=== PATIENT | male | born 1980 | race Hispanic/Latino ===

== ENCOUNTER 2018-04-16 15:07 | Emergency (ER) | payer BC, OTHER ==
[2018-04-16] MEDS ORDERED: KETOROLAC 30 MG/ML INJ ONE (15:36)
--- NOTE | 2018-04-16 15:49 | RAD REPORT ---
EXAM DESCRIPTION: CT - Stone Protocol - 04/16/2018 3:38 pm CLINICAL HISTORY: Abdominal pain. Left flank pain COMPARISON: None. TECHNIQUE: Computed axial tomography of the abdomen pelvis was obtained without oral or IV contrast. Lack of IV and oral contrast limits evaluation of solid organs, bowel, and vessels. Coronal reformat chun images were obtained and reviewed. All CT scans are performed using dose optimization technique as appropriate and may include automated exposure control or mA/KV adjustment according to patient size. FINDINGS: A renal calculus is not seen. Minimal left hydronephrosis is present. A 2 millimeter calcu malia is present the distal left ureter. The liver, spleen, pancreas and adrenals appear grossly normal There is no evidence of diverticulitis. The appendix appears normal IMPRESSION: 2 millimeter calculus distal left ureter resulting in minimal left hydronephrosis
[2018-04-16] MEDS ORDERED: TAMSULOSIN 0.4 MG SR CAP ONE (15:59)
--- NOTE | 2018-04-16 16:04 | ER ---
Nurse's Notes [facility] Name: Derrek Stephens Age: 38 yrs Sex: Male : 1980 Arrival Date: 04/16/2018 Time: 15:11 Bed 17 Private MD: Diagnosis: Distal left ureter calculus Presentation: 04/16 15:15 Presenting complaint: Patient states: Left side flank pain described as stabbing pain a sg 8/10, non radiating, no urinary complaints at this time, reports constant pain that started this morning. Transition of care: patient was not received from another setting of care. Onset of symptoms was April 16, 2018. Risk Assessment: Do you want to hurt yourself or someone else? Patient reports no desire to harm self or others. Initial Sepsis Screen: Does the patient meet any 2 criteria? No. Patient's initial sepsis screen is negative. Does the patient have a suspected source of infection? No. Patient's initial sepsis screen is negative. Care prior to arrival: None. 15:15 Method Of Arrival: Ambulatory sg 15:15 Acuity: TREE 3 sg Historical: - Allergies: 15:12 No Known Allergies; sg - Home Meds: 15:12 None [Active]; sg - PMHx: 15:12 None; sg - PSHx: 15:12 Tonsillectomy; sg - Immunization history:: Adult Immunizations up to date. - Social history:: Smoking status: Patient/guardian denies using tobacco, the patient reports quitting approximately 10 years ago. - Ebola Screening: : Patient negative for fever greater than or equal to 101.5 degrees Fahrenheit, and additional compatible Ebola Virus Disease symptoms Patient denies exposure to infectious person Patient denies travel to an Ebola-affected area in the 21 days before illness onset No symptoms or risks identified at this time. Screenin:35 Abuse screen: Denies threats or abuse. Nutritional screening: No deficits noted. em Tuberculosis screening: No symptoms or risk factors identified. Fall Risk None identified. Assessment: 15:29 General: Appears in no apparent distress. uncomfortable, well developed, well em nourished, Behavior is calm, cooperative. Pain: Complains of pain in left low back Pain currently is 8 out of 10 on a pain scale. Neuro: Level of Consciousness is awake, alert, obeys commands, Oriented to person, place, time, situation. Cardiovascular: Capillary refill < 3 seconds Patient's skin is warm and dry. Respiratory: Airway is patent Respiratory effort is even, unlabored, Respiratory pattern is regular, symmetrical. GI: Abdomen is round Reports nausea, Patient currently denies vomiting. : Urine is clear. Derm: Skin is intact, Skin is pink, warm \T\ dry. Musculoskeletal: Range of motion: intact in all extremities. 15:35 General: The previous assessment is accurate, call light remains within reach. . ss 16:33 Reassessment: Patient appears in no apparent distress at this time. Patient and/or em family updated on plan of care and expected duration. Pain level reassessed. Patient is alert, oriented x 3, equal unlabored respirations, skin warm/dry/pink. Patient states feeling better. Vital Signs: 15:13 Pulse 89; Resp 17; Temp 98.5; Pulse Ox 98% ; Weight 129.27 kg; Height 5 ft. 11 in. sg (180.34 cm); Pain 8/10; 16:15 BP 126 / 81; Pulse 78; Resp 16; Pulse Ox 99% on R/A; Pain 3/10; em 15:13 Body Mass Index 39.75 (129.27 kg, 180.34 cm) sg ED Course: 15:11 Patient arrived in ED. sg 15:12 Arm band placed on. sg 15:14 Daniella Johnson FNP-C is PHCP. snw 15:14 Abimael Sandoval MD is Attending Physician. snw 15:16 Triage completed. sg 15:19 Pan Urban LVN is Primary Nurse. em 15:[address] nj 15:37 CT completed. Patient tolerated procedure well. Patient moved back from CT. nj 15:39 CT Stone Protocol In Process Unspecified. EDMS 16:29 Patient has correct armband on for positive identification. Placed in gown. Bed in low em position. Call light in reach. 16:29 No provider procedures requiring assistance completed. Patient did not have IV access em during this emergency room visit. Administered Medications: 15:57 Drug: TORadol 60 mg Route: IM; Site: right gluteus; em 16:39 Follow up: Response: No adverse reaction em 16:08 Drug: Flomax 0.4 mg Route: PO; em 16:39 Follow up: Response: No adverse reaction em Outcome: 16:03 Discharge ordered by MD. villarreal 16:33 Discharged to home ambulatory. em 16:33 Condition: good 16:33 Discharge instructions given to patient, Instructed on discharge instructions, follow up and referral plans. medication usage, Demonstrated understanding of instructions, follow-up care, medications, Prescriptions given X 2. 16:39 Patient left the ED. em Signatures: Dispatcher [employer] Colby Beard RN RN sg Daniella Johnson, SALES ENGAGEMENT EXECUTIVE-C SALES ENGAGEMENT EXECUTIVE-Csnw Pan Urban, BUSINESS BANKING OFFICER BUSINESS BANKING OFFICER em Beverly Velazquez, Carmine Jolly RN
--- NOTE | 2018-04-16 16:04 | EDPHYS ---
Physician Documentation [facility] Name: Derrek Stephens Age: 38 yrs Sex: Male : 1980 Arrival Date: 04/16/2018 Time: 15:11 Bed 17 Private MD: ED Physician Abimael Sandoval HPI: 04/16 16:00 This 38 yrs old Male presents to ER via Ambulatory with complaints of Flank snw Pain. 16:00 The patient complains of pain in the left low back. The pain does not radiate. Onset: snw The symptoms/episode began/occurred suddenly, today. Modifying factors: The symptoms are alleviated by nothing. Severity of pain: At its worst the pain was moderate severe. The patient has not experienced similar symptoms in the past. The patient has not recently seen a physician. Dad with kidney stone history. Historical: - Allergies: 15:12 No Known Allergies; sg - Home Meds: 15:12 None [Active]; sg - PMHx: 15:12 None; sg - PSHx: 15:12 Tonsillectomy; sg - Immunization history:: Adult Immunizations up to date. - Social history:: Smoking status: Patient/guardian denies using tobacco, the patient reports quitting approximately 10 years ago. - Ebola Screening: : Patient negative for fever greater than or equal to 101.5 degrees Fahrenheit, and additional compatible Ebola Virus Disease symptoms Patient denies exposure to infectious person Patient denies travel to an Ebola-affected area in the 21 days before illness onset No symptoms or risks identified at this time. ROS: 16:00 Constitutional: Negative for fever, chills, and weight loss, Eyes: Negative for injury, snw pain, redness, and discharge, ENT: Negative for injury, pain, and discharge, Neck: Negative for injury, pain, and swelling, Cardiovascular: Negative for chest pain, palpitations, and edema, Respiratory: Negative for shortness of breath, cough, wheezing, and pleuritic chest pain, Abdomen/GI: Negative for abdominal pain, nausea, vomiting, diarrhea, and constipation, : Negative for injury, bleeding, discharge, and swelling, MS/Extremity: Negative for injury and deformity, Skin: Negative for injury, rash, and discoloration, Neuro: Negative for headache, weakness, numbness, tingling, and seizure. 16:00 Back: Positive for pain at rest, pain with movement, of the left low back. Exam: 15:59 Constitutional: This is a well developed, well nourished patient who is awake, alert, snw and in no acute distress. Head/Face: Normocephalic, atraumatic. Eyes: Pupils equal round and reactive to light, extra-ocular motions intact. Lids and lashes normal. Conjunctiva and sclera are non-icteric and not injected. Cornea within normal limits. Periorbital areas with no swelling, redness, or edema. ENT: Nares patent. No nasal discharge, no septal abnormalities noted. Tympanic membranes are normal and external auditory canals are clear. Oropharynx with no redness, swelling, or masses, exudates, or evidence of obstruction, uvula midline. Mucous membranes moist. Neck: Trachea midline, no thyromegaly or masses palpated, and no cervical lymphadenopathy. Supple, full range of motion without nuchal rigidity, or vertebral point tenderness. No Meningismus. Chest/axilla: Normal chest wall appearance and motion. Nontender with no deformity. No lesions are appreciated. Cardiovascular: Regular rate and rhythm with a normal S1 and S2. No gallops, murmurs, or rubs. Normal PMI, no JVD. No pulse deficits. Respiratory: Lungs have equal breath sounds bilaterally, clear to auscultation and percussion. No rales, rhonchi or wheezes noted. No increased work of breathing, no retractions or nasal flaring. Abdomen/GI: Soft, non-tender, with normal bowel sounds. No distension or tympany. No guarding or rebound. No evidence of tenderness throughout. Back: No spinal tenderness. No costovertebral tenderness. Full range of motion. left low flank tenderness Skin: Warm, dry with normal turgor. Normal color with no rashes, no lesions, and no evidence of cellulitis. MS/ Extremity: Pulses equal, no cyanosis. Neurovascular intact. Full, normal range of motion. Neuro: Awake and alert, GCS 15, oriented to person, place, time, and situation. Cranial nerves II-XII grossly intact. Motor strength 5/5 in all extremities. Sensory grossly intact. Cerebellar exam normal. Normal gait. Vital Signs: 15:13 Pulse 89; Resp 17; Temp 98.5; Pulse Ox 98% ; Weight 129.27 kg; Height 5 ft. 11 in. sg (180.34 cm); Pain 8/10; 16:15 BP 126 / 81; Pulse 78; Resp 16; Pulse Ox 99% on R/A; Pain 3/10; em 15:13 Body Mass Index 39.75 (129.27 kg, 180.34 cm) MDM: 15:19 Patient medically screened. snw 16:05 Data reviewed: vital signs, nurses notes. Data interpreted: Pulse oximetry: on room air snw is 98 %. Interpretation: normal. Counseling: I had a detailed discussion with the patient and/or guardian regarding: the historical points, exam findings, and any diagnostic results supporting the discharge/admit diagnosis, radiology results, the need for outpatient follow up, to return to the emergency department if symptoms worsen or persist or if there are any questions or concerns that arise at home. Special discussion: Based on the history and exam findings, there is no indication for further emergent testing or inpatient evaluation. I discussed with the patient/guardian the need to see the primary care provider for further evaluation of the symptoms. I discussed with the patient/guardian the need to see the urologist for further evaluation of the symptoms. 04/16 16:22 Order name: Urine Dipstick--Ancillary (enter results); Complete Time: 10:28 ag 04/16 15:25 Order name: CT Stone Protocol; Complete Time: 15:50 snw 04/16 15:21 Order name: Urine Dipstick-Ancillary (obtain specimen); Complete Time: 16:08 snw Administered Medications: 15:57 Drug: TORadol 60 mg Route: IM; Site: right gluteus; em 16:39 Follow up: Response: No adverse reaction em 16:08 Drug: Flomax 0.4 mg Route: PO; em 16:39 Follow up: Response: No adverse reaction em Disposition: 18:20 Co-signature as Attending Physician, Abimael Sandoval MD. rn Disposition: 04/16/18 16:03 Discharged to Home. Impression: Distal left ureter calculus. - Condition is Stable. - Discharge Instructions: Kidney Stones, Dietary Guidelines to Help Prevent Kidney Stones, Rehydration, Adult. - Prescriptions for Diclofenac Sodium 75 mg Oral Tablet Sustained Release - take 1 tablet by ORAL route 2 times per day; 30 tablet. promethazine 25 mg Oral Tablet - take 1 tablet by ORAL route every 6 hours As needed; 20 tablet. - Work release form, Medication Reconciliation Form, Thank You Letter, Antibiotic Education, Prescription Opioid Use form. - Follow up: Private Physician; When: 2 - 3 days; Reason: Recheck today's complaints, Continuance of care, Re-evaluation by your physician. Follow up: Emergency Department; When: As needed; Reason: Worsening of condition. Signatures: Dispatcher [employer] EDColby Flores, RN RN sg Daniella Johnson, [place] NENA-Twyla PAYMENT POSTER-Lizw Pan Urban, CASTING MACHINE OPERATOR HELPER CASTING MACHINE OPERATOR HELPER em Abimael Sandoval MD MD pr intern: (The following items were deleted from the chart) 16:39 16:03 04/16/2018 16:03 Discharged to Home. Impression: Distal left ureter calculus. em Condition is Stable. Forms are Medication Reconciliation Form, Thank You Letter, Antibiotic Education, Prescription Opioid Use. Follow up: Private Physician; When: 2 - 3 days; Reason: Recheck today's complaints, Continuance of care, Re-evaluation by your physician. Follow up: Emergency Department; When: As needed; Reason: Worsening of condition. snw
[2018-04-16 16:26] LABS: Urine Blood 2+ (NEG); Urine Glucose NEGATIVE (NEG); Urine Protein NEGATIVE (NEG); Urine Specific Gravity 1.025 (1.005-1.030)
== END 2018-04-16 16:39 | disposition home or self-care (01) ==
LOC: ER 15:07
DX: N20.1 Calculus of ureter (principal)
CPT/HCPCS: 74176; 76377; 81003; 96372; 99284

== ENCOUNTER 2020-07-30 10:52 | Emergency (ER) | payer BC ==
[2020-07-30] MEDS ORDERED: MECLIZINE HCL 12.5 MG TAB ONE (11:20)
[2020-07-30 11:41] LABS: Absolute Lymphocytes (CBC) 0.9 K/uL (0.7-4.9); Basophils % 0.3 % (0-1.3); Hematocrit 44.2 % (39.6-49.0); Lymphocytes % 7.6 % (15.3-44.8); MPV 8.1 fL (7.6-11.3)
[2020-07-30 11:44] LABS: Protime INR 0.98
--- NOTE | 2020-07-30 11:45 | RAD REPORT ---
EXAM DESCRIPTION: Maryse Single View07/30/2020 11:34 am CLINICAL HISTORY: Shortness of breath COMPARISON: none FINDINGS: The lungs appear clear of acute infiltrate. The heart is normal size IMPRESSION: No acute abnormalities displayed
--- OUTSIDE RECORDS SUMMARY | 2020-07-30 11:47 | XMS REPORT | Continuity of Care Document ---
:1980 Author Organization [facility] t Address [address] Renee [address] [place] [id number] Care Team Providers Name Role Phone Unavailable Unavailable Unavailable Problems This patient has no known problems. Allergies, Adverse Reactions, Alerts This patient has no known allergies or adverse reactions. Medications This patient has no known medications. Procedures This patient has no known procedures. Results This patient has no known results.
[2020-07-30 12:01] LABS: ALT/SGPT 61 U/L (12-78); AST/SGOT 28 U/L (15-37); Albumin 3.7 g/dL (3.4-5.0); Alkaline Phosphatase 67 U/L (45-117); BUN Blood Urea Nitrogen 17 mg/dL (7-18); Bicarbonate 25 mmol/L (21-32); Bilirubin Direct 0.1 mg/dL (0-0.2); Bilirubin Total 0.4 mg/dL (0.2-1.0); Glucose Level 180 mg/dL (74-106); Magnesium 2.1 mg/dL (1.8-2.4); NT PRO-BNP 8 pg/mL (<125); Potassium 3.8 mmol/L (3.5-5.1); Protein, Total 7.1 g/dL (6.4-8.2); Sodium Level 141 mmol/L (136-145); Troponin (Emerg Dept Use Only) < 0.02 ng/mL (0.0-0.045)
--- NOTE | 2020-07-30 12:57 | ER ---
Nurse's Notes [facility] Name: Derrek Stephens Age: 40 yrs Sex: Male : 1980 Arrival Date: 07/30/2020 Time: 10:54 Bed 8 Private MD: Diagnosis: Other peripheral vertigo Presentation: 07/30 10:55 Chief complaint: EMS states: pt was at work, went up on a structure and felt fine, then tw2 when he got to his desk and set down, he started feeling lightheaded, diaphoretic, dizzy and shirt was soaking wet. initially his BP was 129/100, BGL 142, EKG showed NS, 20 g to RIGHT ac, started 1LNS. Coronavirus screen: At this time, the client does not indicate any symptoms associated with coronavirus-19. Ebola Screen: Patient denies travel to an Ebola-affected area in the 21 days before illness onset. Initial Sepsis Screen: Does the patient meet any 2 criteria? No. Patient's initial sepsis screen is negative. Does the patient have a suspected source of infection? No. Patient's initial sepsis screen is negative. Risk Assessment: Do you want to hurt yourself or someone else? Patient reports no desire to harm self or others. Note provider KIRAN Villaseñor at bedside at this time. Onset of symptoms was July 30, 2020. 10:55 Method Of Arrival: EMS: [facility] EMS tw2 10:55 Acuity: TREE 3 tw2 Triage Assessment: 10:59 General: Appears in no apparent distress. obese, well groomed, Behavior is calm, tw2 cooperative, appropriate for age. Pain: Denies pain. Historical: - Allergies: 11:02 No Known Allergies; tw2 - Home Meds: 11:02 "unknown hypertension medicine" [Active]; tw2 - PMHx: 11:02 Hypertension; tw2 - PSHx: 11:02 Tonsillectomy; tw2 - Immunization history:: Adult Immunizations. - Social history:: Smoking status: . Screenin:23 Abuse screen: Denies threats or abuse. Nutritional screening: No deficits noted. tw2 Tuberculosis screening: No symptoms or risk factors identified. Fall Risk None identified. Assessment: 10:55 General: Appears in no apparent distress. obese, well groomed, Behavior is calm, tw2 cooperative, appropriate for age. Pain: Denies pain. Neuro: Level of Consciousness is awake, alert, obeys commands, Oriented to person, place, time, situation, Reports dizziness. Cardiovascular: Heart tones S1 S2 Patient's skin is warm and dry. Respiratory: Airway is patent Respiratory effort is even, unlabored, Respiratory pattern is regular, symmetrical, Breath sounds are clear bilaterally. GI: No signs and/or symptoms were reported involving the gastrointestinal system. Abdomen is round non-distended, obese, Bowel sounds present X 4 quads. : No signs and/or symptoms were reported regarding the genitourinary system. EENT: No signs and/or symptoms were reported regarding the EENT system. Derm: No signs and/or symptoms reported regarding the dermatologic system. Musculoskeletal: Range of motion: intact in all extremities. 11:45 Reassessment: Patient appears in no apparent distress at this time. No changes from tw2 previously documented assessment. Patient and/or family updated on plan of care and expected duration. Pain level reassessed. Patient is alert, oriented x 3, equal unlabored respirations, skin warm/dry/pink. 12:57 Reassessment: Patient appears in no apparent distress at this time. No changes from tw2 previously documented assessment. Patient and/or family updated on plan of care and expected duration. Pain level reassessed. Patient is alert, oriented x 3, equal unlabored respirations, skin warm/dry/pink. Vital Signs: 10:55 BP 142 / 91; Pulse 88; Resp 17; Temp 97.8(TE); Pulse Ox 99% on R/A; Weight 135.17 kg tw2 (R); Height 5 ft. 11 in. (180.34 cm); Pain 0/10; 11:45 BP 133 / 84; Pulse 81; Resp 16; Pulse Ox 100% on R/A; tw2 12:05 BP 127 / 77 RA Supine (auto/lg); Pulse 84; em1 12:07 BP 128 / 90 LA Sitting (auto/lg); Pulse 84; em1 12:09 BP 119 / 79 LA Standing (auto/lg); Pulse 83; em1 12:57 BP 125 / 77; Pulse 80; Resp 13; Pulse Ox 100% on R/A; tw2 10:55 Body Mass Index 41.56 (135.17 kg, 180.34 cm) tw2 ED Course: 10:54 Patient arrived in ED. tw2 10:54 Jarek Hugo PA is PHCP. tw2 10:54 Placed in gown. Bed in low position. Side rails up X2. electronic warfare linguist on. Pulse ox on. tw2 NIBP on. 10:54 Maintain EMS IV. Dressing intact. Good blood return noted. Site clean \\T\\ dry. Gauge \\T\\ tw 2 site: 18 g RIGHT AC. 10:59 Triage completed. tw2 10:59 Arm band placed on. tw2 11:05 Myrima Bolden, RN is Primary Nurse. tw2 11:27 EKG done, by oven technician. reviewed by Jarek BECK. at1 11:32 Stevenson Sharma MD is Attending Physician. jr8 11:34 XRAY Chest (1 view) In Process Unspecified. EDMS 13:18 No provider procedures requiring assistance completed. IV discontinued, intact, jl7 bleeding controlled, No redness/swelling at site. Pressure dressing applied. Administered Medications: 11:13 Drug: Meclizine 25 mg Route: PO; tw2 13:02 Follow up: Response: No adverse reaction; No change in condition tw2 Outcome: 12:56 Discharge ordered by . jr8 13:18 Discharged to home ambulatory. jl7 13:18 Condition: stable 13:18 Discharge instructions given to patient, Instructed on discharge instructions, follow up and referral plans. medication usage, Demonstrated understanding of instructions, follow-up care, medications, Prescriptions given X 1. 13:19 Patient left the ED. jl7 Signatures: Dispatcher [employer] EDMS Trace Kamara em1 Jarek Hugo PA PA jr8 Carmen Escudero, forge hand EKG Tat1 Myriam Bolden, RN RN tw2 Zaheer Jones, RN RN jl7
--- NOTE | 2020-07-30 12:57 | EDPHYS ---
Physician Documentation [facility] Name: Derrek Stephens Age: 40 yrs Sex: Male : 1980 Arrival Date: 07/30/2020 Time: 10:54 Bed 8 Private MD: ED Physician Stevenson hSarma HPI: 07/30 11:29 This 40 yrs old Male presents to ER via EMS with complaints of Dizziness. jr8 11:29 The patient presents with sense of spinning. Onset: The symptoms/episode began/occurred jr8 acutely, today. Context: occurred at work. Modifying factors: The symptoms are alleviated by nothing, the symptoms are aggravated by standing up, changing position. Associated signs and symptoms: Pertinent positives: diaphoresis. Severity of symptoms: At their worst the symptoms were moderate in the emergency department the symptoms have improved markedly. Patient's baseline: Neuro: alert and fully oriented, Motor: no deficits, Ambulation: walks without assistance, Speech: normal. The patient has not experienced similar symptoms in the past. The patient has not recently seen a physician. Patient stated that he had just finished getting off of a structure at work. Went to bathroom without problems and then sat down at desk. Stated that shortly after started to have sense of spinning along with coolness and diaphoresis. Denies n/v or any other preceding symptoms . Historical: - Allergies: 11:02 No Known Allergies; tw2 - Home Meds: 11:02 "unknown hypertension medicine" [Active]; tw2 - PMHx: 11:02 Hypertension; tw2 - PSHx: 11:02 Tonsillectomy; tw2 - Immunization history:: Adult Immunizations. - Social history:: Smoking status: . ROS: 11:29 Eyes: Negative for injury, pain, redness, and discharge, ENT: Negative for injury, jr8 pain, and discharge, Neck: Negative for injury, pain, and swelling, Cardiovascular: Negative for chest pain, palpitations, and edema, Respiratory: Negative for shortness of breath, cough, wheezing, and pleuritic chest pain, Abdomen/GI: Negative for abdominal pain, nausea, vomiting, diarrhea, and constipation, Back: Negative for injury and pain, MS/Extremity: Negative for injury and deformity, Skin: Negative for injury, rash, and discoloration. 11:29 Neuro: Positive for dizziness. Exam: 11:29 Eyes: Pupils equal round and reactive to light, extra-ocular motions intact. Lids and jr8 lashes normal. Conjunctiva and sclera are non-icteric and not injected. Cornea within normal limits. Periorbital areas with no swelling, redness, or edema. ENT: Nares patent. No nasal discharge, no septal abnormalities noted. Tympanic membranes are normal and external auditory canals are clear. Oropharynx with no redness, swelling, or masses, exudates, or evidence of obstruction, uvula midline. Mucous membranes moist. Neck: Trachea midline, no thyromegaly or masses palpated, and no cervical lymphadenopathy. Supple, full range of motion without nuchal rigidity, or vertebral point tenderness. No Meningismus. Cardiovascular: Regular rate and rhythm with a normal S1 and S2. No gallops, murmurs, or rubs. Normal PMI, no JVD. No pulse deficits. Respiratory: Lungs have equal breath sounds bilaterally, clear to auscultation and percussion. No rales, rhonchi or wheezes noted. No increased work of breathing, no retractions or nasal flaring. Abdomen/GI: Soft, non-tender, with normal bowel sounds. No distension or tympany. No guarding or rebound. No evidence of tenderness throughout. Back: No spinal tenderness. No costovertebral tenderness. Full range of motion. Skin: Warm, dry with normal turgor. Normal color with no rashes, no lesions, and no evidence of cellulitis. MS/ Extremity: Pulses equal, no cyanosis. Neurovascular intact. Full, normal range of motion. Neuro: Awake and alert, GCS 15, oriented to person, place, time, and situation. Cranial nerves II-XII grossly intact. Motor strength 5/5 in all extremities. Sensory grossly intact. Cerebellar exam normal. Vital Signs: 10:55 BP 142 / 91; Pulse 88; Resp 17; Temp 97.8(TE); Pulse Ox 99% on R/A; Weight 135.17 kg tw2 (R); Height 5 ft. 11 in. (180.34 cm); Pain 0/10; 11:45 BP 133 / 84; Pulse 81; Resp 16; Pulse Ox 100% on R/A; tw2 12:05 BP 127 / 77 RA Supine (auto/lg); Pulse 84; em1 12:07 BP 128 / 90 LA Sitting (auto/lg); Pulse 84; em1 12:09 BP 119 / 79 LA Standing (auto/lg); Pulse 83; em1 12:57 BP 125 / 77; Pulse 80; Resp 13; Pulse Ox 100% on R/A; tw2 10:55 Body Mass Index 41.56 (135.17 kg, 180.34 cm) tw2 MDM: 10:59 Patient medically screened. jr8 12:55 Differential diagnosis: cardiac arrhythmia, CVA, hypovolemia, idiopathic dizziness, jr8 near-syncope, syncope, TIA, vertigo. Data reviewed: vital signs, nurses notes, lab test result(s), EKG, radiologic studies, plain films. Data interpreted: Pulse oximetry: on room air is 100 %. Interpretation: normal. Counseling: I had a detailed discussion with the patient and/or guardian regarding: the historical points, exam findings, and any diagnostic results supporting the discharge/admit diagnosis, lab results, radiology results, the need for outpatient follow up, a family practitioner, to return to the emergency department if symptoms worsen or persist or if there are any questions or concerns that arise at home. Response to treatment: the patient's symptoms have resolved after treatment. 07/30 10:59 Order name: Basic Metabolic Panel; Complete Time: 12:02 07/30 10:59 Order name: CBC with Diff; Complete Time: 11:53 07/30 10:59 Order name: LFT's; Complete Time: 12:02 07/30 10:59 Order name: Magnesium; Complete Time: 12:02 07/30 10:59 Order name: NT PRO-BNP; Complete Time: 12:02 07/30 10:59 Order name: PT-INR; Complete Time: 11:53 07/30 10:59 Order name: Troponin (emerg Dept Use Only); Complete Time: 12:02 07/30 10:59 Order name: XRAY Chest (1 view); Complete Time: 11:53 07/30 11:00 Order name: EKG; Complete Time: 11:01 07/30 11:00 Order name: Cardiac monitoring; Complete Time: 11:07 07/30 11:00 Order name: EKG - Nurse/Tech; Complete Time: 11:13 07/30 11:00 Order name: IV Saline Lock; Complete Time: 07/30 11:00 Order name: Labs collected and sent; Complete Time: 07/30 11:00 Order name: O2 Per Protocol; Complete Time: 07/30 11:00 Order name: O2 Sat Monitoring; Complete Time: 07/30 12:02 Order name: Orthostatics; Complete Time: 12: Administered Medications: 11: Drug: Meclizine 25 mg Route: PO; tw2 13:02 Follow up: Response: No adverse reaction; No change in condition tw2 Disposition: 15:07 Co-signature as Attending Physician, Stevenson Sharma MD I agree with the assessment and jeffrey plan of care. Disposition: 07/30/20 12:56 Discharged to Home. Impression: Other peripheral vertigo. - Condition is Stable. - Discharge Instructions: Vertigo, Vertigo, [id number]. - Prescriptions for Meclizine 25 mg Oral Tablet - take 1 tablet by ORAL route every 8 hours As needed; 30 tablet. - Medication Reconciliation Form, Thank You Letter, Antibiotic Education, Prescription Opioid Use, Work release form form. - Follow up: Private Physician; When: 1 - 2 days; Reason: Recheck today's complaints, Continuance of care, Re-evaluation by your physician. - Problem is new. - Symptoms have improved. Signatures: Dispatcher [employer] Stevenson Quinones MD MD cha Roszak, Josh, PA PA jr8 Myriam Bolden RN RN tw2 Zaheer Jones RN RN jl7 Corrections: (The following items were deleted from the chart) 13:19 12:56 07/30/2020 12:56 Discharged to Home. Impression: Other peripheral vertigo. jl7 Condition is Stable. Forms are Work release form, Medication Reconciliation Form, Thank You Letter, Antibiotic Education, Prescription Opioid Use. Follow up: Private Physician; When: 1 - 2 days; Reason: Recheck today's complaints, Continuance of care, Re-evaluation by your physician. Problem is new. Symptoms have improved. jr8
[2020-07-30 13:42] VITALS: TEMP 97.8
[2020-07-30 13:48] VITALS: O2SAT 100
[2020-07-30 13:57] VITALS: BP 125/77
== END 2020-07-30 13:19 | disposition home or self-care (01) ==
LOC: ER 10:52
DX: H81.399 Other peripheral vertigo, unspecified ear (principal); I10 Essential (primary) hypertension
CPT/HCPCS: 36415; 71045; 80048; 80076; 83735; 83880; 84484; 85025; 85610; 93005; 99284

== ENCOUNTER 2020-11-19 05:38 | Emergency (ER) | payer BC ==
--- OUTSIDE RECORDS SUMMARY | 2020-11-19 05:40 | XMS REPORT | Continuity of Care Document ---
:1980 Author Organization [facility] t Address [address] [place] [address] Dr. Renee [address] [place] [id number] Care Team Providers Name Role Phone Unavailable Unavailable Unavailable Problems This patient has no known problems. Allergies, Adverse Reactions, Alerts This patient has no known allergies or adverse reactions. Medications This patient has no known medications. Procedures This patient has no known procedures. Results This patient has no known results.
[2020-11-19] MEDS ORDERED: ASPIRIN 81 MG CHEWABLE TABLET ONE (06:35)
[2020-11-19 06:48] LABS: Protime INR 0.91
[2020-11-19 06:50] LABS: Basophils % 0.3 % (0-1.3); Hematocrit 46.3 % (39.6-49.0); Lymphocytes % 27.9 % (15.3-44.8); MPV 7.9 fL (7.6-11.3)
[2020-11-19 06:55] LABS: ALT/SGPT 43 U/L (12-78); AST/SGOT 23 U/L (15-37); Alkaline Phosphatase 77 U/L (45-117); BUN Blood Urea Nitrogen 11 mg/dL (7-18); Bicarbonate 27 mmol/L (21-32); Bilirubin Direct 0.1 mg/dL (0-0.2); Bilirubin Total 0.5 mg/dL (0.2-1.0); Glucose Level 98 mg/dL (74-106); Magnesium 2.4 mg/dL (1.8-2.4); NT PRO-BNP 11 pg/mL (<125); Potassium 4.2 mmol/L (3.5-5.1); Protein, Total 7.3 g/dL (6.4-8.2); Sodium Level 141 mmol/L (136-145); Troponin (Emerg Dept Use Only) < 0.02 ng/mL (0.0-0.045)
--- NOTE | 2020-11-19 07:13 | RAD REPORT ---
EXAM DESCRIPTION: Maryse Single View11/19/2020 7:04 am CLINICAL HISTORY: Chest pain COMPARISON: July 2020 FINDINGS: The lungs appear clear of acute infiltrate. The heart is normal size IMPRESSION: No acute abnormalities displayed
--- NOTE | 2020-11-19 08:18 | EKG ---
Test Date: 2020-11-19 Test Time: 05:59:26 Education Coordinator: CHIP MEASUREMENT RESULTS: Intervals: Rate: 72 DE: 158 QRSD: 98 QT: 382 QTc: 418 [place]: P: 25 DE: 158 QRS: 33 T: 26 INTERPRETIVE STATEMENTS: Normal sinus rhythm Normal ECG Compared to ECG 07/30/2020 11:10:12 No significant changes Electronically Signed On 11-19-20 08:17:30 [employer] by Jovan Alvarez
[2020-11-19 08:45] LABS: Urine Blood NEGATIVE (NEG); Urine Glucose NEGATIVE (NEG); Urine Protein NEGATIVE (NEG); Urine Specific Gravity >1.030 (1.005-1.030)
--- NOTE | 2020-11-19 09:38 | EDPHYS ---
Physician Documentation [facility] Name: Derrek Stephens Age: 40 yrs Sex: Male : 1980 Arrival Date: 11/19/2020 Time: 05:42 Bed 7 Private MD: ED Physician Loki Spencer HPI: 11/19 06:11 This 40 yrs old Male presents to ER via Ambulatory with complaints of High mh7 Blood Pressure. 06:11 The patient has elevated blood pressure and discovered this at home, with a home mh7 device. Onset: The symptoms/episode began/occurred 2 day(s) ago. Modifying factors: The symptoms are aggravated by discontinuation of meds, ILEANA-inhibitor, stopped taking for a week. Associated signs and symptoms: Pertinent positives: chest pain, Pertinent negatives: dizziness, dyspnea, headache, lightheadedness, nausea, visual changes, vomiting, weakness. Severity of symptoms: At its worst the blood pressure was moderate, 147 mm Hg, in the emergency department the blood pressure is unchanged. Historical: - Allergies: 05:59 No Known Allergies; em - Home Meds: 05:59 lisinopril 20 mg Oral tab [Active]; em - PMHx: 05:59 Hypertension; em - PSHx: 05:59 Tonsillectomy; em - Immunization history:: Adult Immunizations up to date. - Social history:: Smoking status: Patient denies any tobacco usage or history of. ROS: 06:11 Constitutional: Negative for fever, chills, and weight loss, Eyes: Negative for injury, mh7 pain, redness, and discharge, ENT: Negative for injury, pain, and discharge, Neck: Negative for injury, pain, and swelling, Respiratory: Negative for shortness of breath, cough, wheezing, and pleuritic chest pain, Abdomen/GI: Negative for abdominal pain, nausea, vomiting, diarrhea, and constipation, Back: Negative for injury and pain, : Negative for injury, bleeding, discharge, and swelling, MS/Extremity: Negative for injury and deformity, Skin: Negative for injury, rash, and discoloration, Neuro: Negative for headache, weakness, numbness, tingling, and seizure, Psych: Negative for depression, anxiety, suicide ideation, homicidal ideation, and hallucinations, Allergy/Immunology: Negative for hives, rash, and allergies, Endocrine: Negative for neck swelling, polydipsia, polyuria, polyphagia, and marked weight changes, Hematologic/Lymphatic: Negative for swollen nodes, abnormal bleeding, and unusual bruising. Exam: 06:11 Constitutional: This is a well developed, well nourished patient who is awake, alert, mh7 and in no acute distress. Head/Face: Normocephalic, atraumatic. Eyes: Pupils equal round and reactive to light, extra-ocular motions intact. Lids and lashes normal. Conjunctiva and sclera are non-icteric and not injected. Cornea within normal limits. Periorbital areas with no swelling, redness, or edema. Neck: Trachea midline, no thyromegaly or masses palpated, and no cervical lymphadenopathy. Supple, full range of motion without nuchal rigidity, or vertebral point tenderness. No Meningismus. Chest/axilla: Normal chest wall appearance and motion. Nontender with no deformity. No lesions are appreciated. Cardiovascular: Regular rate and rhythm with a normal S1 and S2. No gallops, murmurs, or rubs. Normal PMI, no JVD. No pulse deficits. Respiratory: Lungs have equal breath sounds bilaterally, clear to auscultation and percussion. No rales, rhonchi or wheezes noted. No increased work of breathing, no retractions or nasal flaring. Abdomen/GI: Soft, non-tender, with normal bowel sounds. No distension or tympany. No guarding or rebound. No evidence of tenderness throughout. Back: No spinal tenderness. No costovertebral tenderness. Full range of motion. Skin: Warm, dry with normal turgor. Normal color with no rashes, no lesions, and no evidence of cellulitis. MS/ Extremity: Pulses equal, no cyanosis. Neurovascular intact. Full, normal range of motion. Neuro: Awake and alert, GCS 15, oriented to person, place, time, and situation. Cranial nerves II-XII grossly intact. Motor strength 5/5 in all extremities. Sensory grossly intact. Cerebellar exam normal. Normal gait. Psych: Awake, alert, with orientation to person, place and time. Behavior, mood, and affect are within normal limits. Vital Signs: 05:57 BP 154 / 106; Pulse 84; Resp 18; Temp 97.8; Pulse Ox 100% on R/A; Weight 127.01 kg; em Height 5 ft. 11 in. (180.34 cm); Pain 0/10; 07:01 BP 140 / 101; Pulse 80; Resp 18; Pulse Ox 99% ; ea 07:37 BP 126 / 81; Pulse 75; Resp 15; Pulse Ox 100% ; jl7 09:45 BP 125 / 89; Pulse 66; Resp 16 S; Pulse Ox 99% on R/A; aa5 10:30 BP 129 / 85; Pulse 66; Resp 18 S; Pulse Ox 98% on R/A; Pain 0/10; aa5 05:57 Body Mass Index 39.05 (127.01 kg, 180.34 cm) em MDM: 06:59 Transition of care: After a detail discussion of the patient's case, care is 7 transferred to Loki Spencer MD. 08:38 Differential diagnosis: essential htn vs 2ndary htn, chest pain low risk. Data ma2 reviewed: vital signs, nurses notes. Counseling: I had a detailed discussion with the patient and/or guardian regarding: the historical points, exam findings, and any diagnostic results supporting the discharge/admit diagnosis, the presence of at least one elevated blood pressure reading (>120/80) during this emergency department visit, the need for outpatient follow up, for definitive care. Response to treatment: the patient's symptoms have markedly improved after treatment. ED course: patient main reason to come to er is elevated htn whcihc he has and not been taking his rx. lisinopril 20 daily.. his bp is controlled in er. he has no htn emergency or urgency.. he reported chest pressure on/off for months.. no chest pressure or pain or angina equivalent in the last 24 hrs. he is carlita score 1 despite his 1 risk of htn and male gender... no family hx no other risk factors.. ekg unremarkable, trop is negative. will get 2nd set of trop now.. if negative he will be discharged, he is calling his pcp now to get scheduled for stress test in the next 2 days. i explained need to return to er for any cp or angina equivalent . 09:37 Patient medically screened. ma2 11/19 06:11 Order name: Basic Metabolic Panel [facility] 11/19 06:11 Order name: CBC with Diff [facility] 11/19 06:11 Order name: LFT's [facility] 11/19 06:11 Order name: Magnesium [facility] 11/19 06:11 Order name: NT PRO-BNP; Complete Time: 07:56 7 11/19 06:11 Order name: PT-INR; Complete Time: 07:56 7 11/19 06:11 Order name: Troponin (emerg Dept Use Only); Complete Time: 07:56 7 11/19 06:11 Order name: XRAY Chest (1 view) [facility] 11/19 06:11 Order name: Basic Metabolic Panel; Complete Time: 07:56 EDMS 11/19 06:11 Order name: CBC with Automated Diff; Complete Time: 07:56 EDMS 11/19 06:11 Order name: Liver (Hepatic) Function; Complete Time: 07:56 EDMS 11/19 06:11 Order name: Magnesium; Complete Time: 07:56 EDMS 11/19 07:52 Order name: Urine Dipstick--Ancillary (enter results); Complete Time: 09:37 bd 11/19 08:38 Order name: Troponin (emerg Dept Use Only): 2nd set - repeat; Complete Time: 09:37 [facility] 11/19 06:11 Order name: EKG; Complete Time: 06:12 [facility] 11/19 06:11 Order name: Cardiac monitoring; Complete Time: 06:26 [facility] 11/19 06:11 Order name: EKG - Nurse/Tech; Complete Time: 06:26 [facility] 11/19 06:11 Order name: IV Saline Lock; Complete Time: 06:26 [facility] 11/19 06:11 Order name: Labs collected and sent; Complete Time: 06:26 [facility] 11/19 06:11 Order name: O2 Per Protocol; Complete Time: 06:26 [facility] 11/19 06:11 Order name: O2 Sat Monitoring; Complete Time: 06:26 [facility] 11/19 06:11 Order name: Urine Dipstick-Ancillary (obtain specimen); Complete Time: 07:54 7 11/19 07:13 Order name: RAD; Complete Time: 07:56 EDMS Administered Medications: 07:00 Drug: Aspirin Chewable Tablet 324 mg Route: PO; ea Disposition: 11/19/20 09:37 Discharged to Home. Impression: Essential (primary) hypertension. - Condition is Stable. - Discharge Instructions: Hypertension, How to Take Your Blood Pressure, [id number], Managing Your Hypertension. - Medication Reconciliation Form, Thank You Letter, Antibiotic Education, Prescription Opioid Use, Work release form form. - Follow up: Private Physician; When: Tomorrow; Reason: Continuance of care. Signatures: Dispatcher [employer] Pan Marie RN RN Merly Fontaine RN RN aa5 Ruba Mandujano RN RN ea Alzahri, Mohammad, MD MD ma2 Ronal Bonilla MD MD 7 Corrections: (The following items were deleted from the chart) 10:44 09:37 11/19/2020 09:37 Discharged to Home. Impression: Essential (primary) aa5 hypertension. Condition is Stable. Discharge Instructions: Hypertension, How to Take Your Blood Pressure, [id number], Managing Your Hypertension. Forms are Medication Reconciliation Form, Thank You Letter, Antibiotic Education, Prescription Opioid Use. Follow up: Private Physician; When: Tomorrow; Reason: Continuance of care. ma2
--- NOTE | 2020-11-19 09:38 | ER ---
Nurse's Notes [facility] Name: Derrek Stephens Age: 40 yrs Sex: Male : 1980 Arrival Date: 11/19/2020 Time: 05:42 Bed 7 Private MD: Diagnosis: Essential (primary) hypertension Presentation: 11/19 05:57 Chief complaint: Patient states: checked BP this morning at 0445 and it was 147/101, em reports taking 20 mg Lisinopril, also reports chest tightness like something sitting on chest, denies pain, headache or N/V. Coronavirus screen: Client denies travel out of the [place] in the last 14 days. Ebola Screen: Patient negative for fever greater than or equal to 101.5 degrees Fahrenheit, and additional compatible Ebola Virus Disease symptoms Patient denies exposure to infectious person. Patient denies travel to an Ebola-affected area in the 21 days before illness onset. No symptoms or risks identified at this time. Initial Sepsis Screen: Does the patient meet any 2 criteria? No. Patient's initial sepsis screen is negative. Does the patient have a suspected source of infection? No. Patient's initial sepsis screen is negative. Risk Assessment: Do you want to hurt yourself or someone else? Patient reports no desire to harm self or others. Onset of symptoms was November 19, 2020. 05:57 Method Of Arrival: Ambulatory em 05:57 Acuity: TREE 3 em Historical: - Allergies: 05:59 No Known Allergies; em - Home Meds: 05:59 lisinopril 20 mg Oral tab [Active]; em - PMHx: 05:59 Hypertension; em - PSHx: 05:59 Tonsillectomy; em - Immunization history:: Adult Immunizations up to date. - Social history:: Smoking status: Patient denies any tobacco usage or history of. Screenin:26 Abuse screen: Denies threats or abuse. Nutritional screening: No deficits noted. ea Tuberculosis screening: No symptoms or risk factors identified. Fall Risk IV access (20 points). Assessment: 06:27 General: Appears in no apparent distress. Behavior is calm, cooperative, appropriate ea for age. Pain: Complains of pain in chest. Neuro: Level of Consciousness is awake, alert, obeys commands, Oriented to person, place, time. Cardiovascular: Patient's skin is warm and dry. Respiratory: Airway is patent Respiratory effort is even, unlabored, Respiratory pattern is regular, symmetrical. Derm: Skin is pink, warm \T\ dry. 07:30 Reassessment: Patient is alert, oriented x 3, equal unlabored respirations, skin aa5 warm/dry/pink. Patient denies pain at this time. Pt appears comfortable, sitting up in bed. Awaiting disposition. . 08:52 Reassessment: Patient is alert, oriented x 3, equal unlabored respirations, skin aa5 warm/dry/pink. Awaiting repeat troponin result. . 10:40 Reassessment: Patient is alert, oriented x 3, equal unlabored respirations, skin aa5 warm/dry/pink. 10:40 General: Appears comfortable, Denies any symptoms . aa5 Vital Signs: 05:57 BP 154 / 106; Pulse 84; Resp 18; Temp 97.8; Pulse Ox 100% on R/A; Weight 127.01 kg; em Height 5 ft. 11 in. (180.34 cm); Pain 0/10; 07:01 BP 140 / 101; Pulse 80; Resp 18; Pulse Ox 99% ; ea 07:37 BP 126 / 81; Pulse 75; Resp 15; Pulse Ox 100% ; jl7 09:45 BP 125 / 89; Pulse 66; Resp 16 S; Pulse Ox 99% on R/A; aa5 10:30 BP 129 / 85; Pulse 66; Resp 18 S; Pulse Ox 98% on R/A; Pain 0/10; aa5 05:57 Body Mass Index 39.05 (127.01 kg, 180.34 cm) em ED Course: 05:42 Patient arrived in ED. bp1 05:51 Ronal Bonilla MD is Attending Physician. mh7 05:58 Triage completed. em 05:59 Arm band placed on. em 06:17 Ruba Mandujano, JORGE is Primary Nurse. ea 06:27 Patient has correct armband on for positive identification. Bed in low position. Call ea light in reach. Side rails up X2. 06:27 Inserted saline lock: 20 gauge in right antecubital area, using aseptic technique. ea Blood collected. 07:56 Attending Physician role handed off by Ronal Bonilla MD ma2 07:56 Loki Spencer MD is Attending Physician. ma2 08:17 Primary Nurse role handed off by Ruba Mandujano RN bd 08:52 Merly Beltran RN is Primary Nurse. aa5 08:53 Troponin (emerg Dept Use Only): 2nd set - repeat Sent. 5 08:53 Repeat lab(s) drawn. by id, sent to lab. 5 10:40 No provider procedures requiring assistance completed. IV discontinued, intact, aa5 bleeding controlled, No redness/swelling at site. Pressure dressing applied. Administered Medications: 07:00 Drug: Aspirin Chewable Tablet 324 mg Route: PO; ea Outcome: 09:37 Discharge ordered by . ma2 10:40 Discharged to home ambulatory. aa5 10:40 Condition: stable 10:40 Instructed on discharge instructions, follow up and referral plans. Demonstrated understanding of instructions, follow-up care. 10:44 Patient left the ED. aa5 Signatures: Blanquita Hanna Edgar, RN RN em Calderon, Audri, Esther Shea RN, Jahala, RN RN 7 Ruba Mandujano RN RN ea Alzahri, Mohammad, MD MD id2 Evelin Casiano Maurice, MD MD mh7 Corrections: (The following items were deleted from the chart) 06:27 06:27 IV discontinued, intact, bleeding controlled, No redness/swelling at site. ea Pressure dressing applied, ea 06:27 06:27 No provider procedures requiring assistance completed. ea ea
[2020-11-19 11:23] VITALS: TEMP 97.8
[2020-11-19 11:27] VITALS: BP 129/85; O2SAT 98
== END 2020-11-19 10:44 | disposition home or self-care (01) ==
LOC: ER 05:38
DX: I10 Essential (primary) hypertension (principal)
CPT/HCPCS: 36415; 71045; 80048; 80076; 81003; 83735; 83880; 84484; 85025; 85610; 93005; 99284